=== PATIENT | female | born 1955 | race Caucasian/White ===

== ENCOUNTER → 2021-04-11 | Outpatient (CLI) | payer MEDICARE, OTHER ==
[~2021-04-11] MED LIST: ATIVAN1 MG PO; COZAAR100 MG PO; EFFEXOR XR 150150 MG PO; GLUCOPHAGE1000 MG PO; GLUCOTROL 10 MG10 MG PO; LIPITOR TAB 2020 MG PO; NAPROXEN500 MG PO; NEURONTIN 400400 MG PO; PERCOCET 10-321 EACH PO; PERCOCET 7.5-31 EACH PO; PROTONIX 40 MG40 M1 PO; TENORMIN 50 MG50 MG PO
== END ==
LOC: EXRD 14:53
DX: M25.50 Pain in unspecified joint (principal); M06.9 Rheumatoid arthritis, unspecified; M19.041 Primary osteoarthritis, right hand; M19.042 Primary osteoarthritis, left hand; M85.842 Other specified disorders of bone density and structure, left hand; M85.841 Other specified disorders of bone density and structure, right hand
CPT/HCPCS: 73130; 73564